=== PATIENT | female | born 1950 | race Caucasian/White ===

== ENCOUNTER 2018-07-12 08:49 | Day surgery (SDC) | payer BC, MEDICARE ==
[~2018-07-12 08:49] MED LIST: Acetaminophen TAB* 325 MG PO PRN; Buffered Lidocaine 1% SYRIN* 1 ML/SYRINGE INTRADERM ONE
[2018-07-12] MEDS ORDERED: Ketorolac 0.5% OPHTH (NF) 0.5 % 5 ML BTL ONE (09:30)
[2018-07-12] MEDS ORDERED: Neomycin/Polymy/Dex OPTH.SUSP* MAXITROL 0.1% 5 ML ONE (09:30)
[2018-07-12] MEDS ORDERED: Lidocaine 2% EPI 1:200000 MPF*10-20 ML VIAL ONE (09:30)
[2018-07-12] MEDS ORDERED: Proparacaine 0.5% OPHTH.SOL* 15 ML BTL ONE (09:30)
[2018-07-12] MEDS ORDERED: Povidone Iodine 5% OPTH* 30 ML BTL ONE (09:30)
[2018-07-12] MEDS ORDERED: acetaZOLAMIDE TAB* 250 MG ONE (09:30)
[2018-07-12] MEDS ORDERED: Cyclopentolate 1% OPTH.SOL* 2 ML BTL ONE (09:30)
[2018-07-12] MEDS ORDERED: Lidocaine 1%* 5 ML VIAL ONE (09:30)
[2018-07-12] MEDS ORDERED: Phenylephrine OPHTH SOL 2.5%* 2 ML ONE (09:30)
[2018-07-12] MEDS ORDERED: Midazolam* 1 MG/ML 2 ML VIAL (2 MG) ONE (11:05)
[2018-07-12] MEDS ORDERED: fentaNYL* 50 MCG/ML 2 ML VIAL (100 MCG VIAL) ONE (11:08)
[2018-07-12 12:21] VITALS: BP 157/87
--- NOTE | 2018-07-12 12:39 | OP ---
DATE OF OPERATION: 07/12/18 [facility] DATE OF : 50 SURGEON: Peter Varghese M.D. PREOPERATIVE DIAGNOSIS: Cataract, right eye. POSTOPERATIVE DIAGNOSIS: Cataract, right eye. OPERATIVE PROCEDURE: Extracapsular cataract extraction with intraocular lens implant, right eye. DESCRIPTION OF PROCEDURE: The patient was brought to the operating room after being given 1/2% Alcaine with epinephrine drops in the preoperative area. The eye was prepped and draped in the usual sterile fashion. Sterile drape and eyelid speculum were placed. Again, topical 1/2% Alcaine with epinephrine was given. A paracentesis incision was made at the 12 o'clock position with the No.75 blade. Clear cornea incision 2.2 x 2.2-mm was created at the 9 o'clock position starting at the anterior limbus using the 2.2-mm keratome. The anterior chamber was irrigated with 0.4 mL of 1% non-preservative intracameral lidocaine and filled with DisCoVisc. A capsulorrhexis was completed using the cystotome and the Utrata forceps. Hydrodissection was performed with balanced salt solution. The lens nucleus was removed with the Phacoemulsification handpiece without incident. Cortex was removed with the irrigation-aspiration handpiece. The capsular bag was re-inflated using DisCoVisc and an SN6AT7 6.5 implant was inserted with the shooter, oriented to the 92-degree meridian. Horizontal reference guerrier were made with the patient in seated position in the preoperative area. ORA was used to confirm all measurements. The irrigation- aspiration handpiece was used to remove all residual DisCoVisc. The eye was refilled with balanced salt solution and the wound checked and found to be watertight. Topical Maxitrol drops were given. [id number]/[facility] #: [id number] LILLIANA
== END 2018-07-12 12:29 | disposition home or self-care (01) ==
LOC: OREAST 08:49
PROVIDERS: ATTEND Specialist
DX: H25.811 Combined forms of age-related cataract, right eye (principal); H44.23 Degenerative myopia, bilateral; Z87.891 Personal history of nicotine dependence
CPT/HCPCS: A9270-GY; J2250; J3010; V2787

== ENCOUNTER 2018-07-19 07:13 | Day surgery (SDC) | payer BC ==
[~2018-07-19 07:13] MED LIST changes: -Acetaminophen TAB* 325 MG PO PRN
[2018-07-19] MEDS ORDERED: fentaNYL* 50 MCG/ML 2 ML VIAL (100 MCG VIAL) ONE (08:35)
[2018-07-19] MEDS ORDERED: Midazolam* 1 MG/ML 2 ML VIAL (2 MG) ONE (08:35)
[2018-07-19 09:54] VITALS: BP 164/77
[2018-07-19] MEDS ORDERED: Povidone Iodine 5% OPTH* 30 ML BTL ONE ×2 (10:05→11:54)
[2018-07-19] MEDS ORDERED: Lidocaine 1%* 5 ML VIAL ONE ×2 (10:05→11:54)
[2018-07-19] MEDS ORDERED: Proparacaine 0.5% OPHTH.SOL* 15 ML BTL ONE ×2 (10:05→11:54)
[2018-07-19] MEDS ORDERED: Phenylephrine OPHTH SOL 2.5%* 2 ML ONE ×2 (10:05→11:54)
[2018-07-19] MEDS ORDERED: Lidocaine 2% EPI 1:200000 MPF*10-20 ML VIAL ONE ×2 (10:05→11:54)
[2018-07-19] MEDS ORDERED: acetaZOLAMIDE TAB* 250 MG ONE ×2 (10:05→11:54)
[2018-07-19] MEDS ORDERED: Neomycin/Polymy/Dex OPTH.SUSP* MAXITROL 0.1% 5 ML ONE ×2 (10:05→11:54)
[2018-07-19] MEDS ORDERED: Ketorolac 0.5% OPHTH (NF) 0.5 % 5 ML BTL ONE ×2 (10:05→11:54)
[2018-07-19] MEDS ORDERED: Cyclopentolate 1% OPTH.SOL* 2 ML BTL ONE ×2 (10:05→11:54)
--- NOTE | 2018-07-19 11:37 | OP ---
OPERATIVE NOTE: DATE OF OPERATION: 07/19/18 DATE OF : 50 SURGEON: Peter Varghese M.D. PREOPERATIVE DIAGNOSIS: Cataract, left eye. POSTOPERATIVE DIAGNOSIS: Cataract, left eye. OPERATIVE PROCEDURE: Extracapsular cataract extraction with intraocular lens implant, left eye. PROCEDURE: The patient was brought to the operating room after being given 1/2% Alcaine with epineph rine drops in the preoperative area. The eye was prepped and draped in the usual sterile fashion. S terile drape and eyelid speculum were placed. Again, topical 1/2% Alcaine with epinephrine was given . A paracentesis incision was made at the 3 o'clock position with the No. 75 blade. Clear cornea in cision 2.2 x 2.2-mm was created at the 6 o'clock position starting at the anterior limbus using the 2 .2-mm keratome. The anterior chamber was irrigated with 0.4 mL of 1% non-preservative intracameral l idocaine and filled with DisCoVisc. A capsulorrhexis was completed using the cystotome and the Utrat a forceps. Hydrodissection was performed with balanced salt solution. The lens nucleus was removed w ith the Phacoemulsification handpiece without incident. Cortex was removed with the irrigation-aspir ation handpiece. The capsular bag was re-inflated using DisCoVisc and an SN6AT7 6 diopter inserted w ith the shooter oriented to the 74-degree meridian. Horizontal reference guerrier were made with the pa tient in the seated position in the preoperative area and all measurements confirmed with ORA. The ir rigation-aspiration handpiece was used to remove all residual DisCoVisc. The eye was refilled with b alanced salt solution and the wound checked and found to be watertight. Topical Maxitrol drops were given. [id number]/[facility] #: [id number]
[2018-07-20] MEDS ORDERED: Acetaminophen TAB* 325 MG PO PRN (05:00)
== END 2018-07-19 09:55 | disposition home or self-care (01) ==
LOC: OREAST 07:13
PROVIDERS: ATTEND Specialist
DX: H25.812 Combined forms of age-related cataract, left eye (principal); H44.23 Degenerative myopia, bilateral; Z87.891 Personal history of nicotine dependence
CPT/HCPCS: A9270-GY; J2250; J3010; V2787

== ENCOUNTER 2022-02-12 07:15 | Inpatient (IN) ==
[~2022-02-12 07:15] MED LIST changes: +Buffered Lidocaine 1% SYRIN 1 ml INTRADERM ONE; -Buffered Lidocaine 1% SYRIN* 1 ML/SYRINGE INTRADERM ONE; +Lactated Ringers 1000 ml BAG 1,000 ML IV SCH
[2022-02-12] MEDS ORDERED: Ropivacaine 5 MG/ML 20 ML VIAL 0.5% (100 MG) ONE (07:55)
[2022-02-12] MEDS ORDERED: Lidocaine 2% PF 5 ML VIAL ONE ×2 (08:00→08:04)
[2022-02-12] MEDS ORDERED: Propofol 10 MG/ML 20 ML BTL ONE ×3 (08:00→12:18)
[2022-02-12] MEDS ORDERED: Ketamine HCL 50 mg/ml 10 ml VIAL (500 MG) ONE (08:09)
[2022-02-12] MEDS ORDERED: ceFAZolin 2 GM PREMIX 2 GM/50 ML BAG ONE (08:16)
[2022-02-12] MEDS ORDERED: Buffered Lidocaine 1% SYRIN 1 ml INTRADERM ONE (08:17)
[2022-02-12] MEDS ORDERED: Midazolam 2 mg/2 ml VIAL 1 mg/ml 2 ml VIAL (2 mg) ONE (09:34)
[2022-02-12] MEDS ORDERED: fentaNYL 100 mcg/2 ml 50 MCG/ML VIAL ONE (09:34)
[2022-02-12] MEDS ORDERED: ROPIVACAINE 5 MG/ML 30 ML BTL (0.5%) ONE (09:35)
[2022-02-12] MEDS ORDERED: Naloxone 0.4 mg VIAL 0.4 mg/ml 1 ml VIAL IV PRN (10:20)
[2022-02-12] MEDS ORDERED: Prochlorperazine 5 mg/ml 2 ml VIAL (10 mg) IV PRN (10:20)
[2022-02-12] MEDS ORDERED: Ondansetron 4 mg VIAL 2 MG/ML 2 ml VIAL ONE (10:53)
[2022-02-12] MEDS ORDERED: Magnesium Hydroxide LIQ 30 ML UDC PO PRN (12:40)
[2022-02-12] MEDS ORDERED: Lactulose 30 ml UDC PO PRN (12:40)
[2022-02-12] MEDS ORDERED: Ondansetron 4 mg VIAL 2 MG/ML 2 ml VIAL IV PRN (12:40)
[2022-02-12] MEDS ORDERED: Ondansetron ODT 4 mg TAB 4 MG TAB PO PRN (12:40)
[2022-02-12] MEDS ORDERED: HYDROmorphone 1 MG/1 ML SYRINGE ONE (12:43)
[2022-02-12] MEDS: HYDROmorphone 1 MG/1 ML SYRINGE IV PRN ×5 (12:49→13:39)
[2022-02-12] MEDS: Morphine 2 MG/ML SYRINGE IV PRN ×2 (16:17→21:22)
[2022-02-12] MEDS: Lactated Ringers 1000 ml BAG 1,000 ML IV SCH (16:22)
[2022-02-12] MEDS: ceFAZolin 1 GM ADVAN 1 GM in NS 0.9% 50 ML 50 ML IVPB SCH ×2 (16:24→23:46)
[2022-02-12] MEDS: Magnesium Hydroxide LIQ 30 ML UDC PO SCH (21:26)
[2022-02-13] MEDS: Lactated Ringers 1000 ml BAG 1,000 ML IV SCH (03:13)
[2022-02-13 06:19] LABS: Hematocrit 35 % (35-47); Hemoglobin 11.7 g/dL (12.0-16.0); Platelet Count 243 10^3/uL (150-450)
[2022-02-13 06:41] LABS: Calcium 8.9 mg/dL (8.6-10.3); Potassium 4.7 mmol/L (3.5-5.0); eGFR CKD-EPI 81.2 (>60)
[2022-02-13] MEDS: Magnesium Hydroxide LIQ 30 ML UDC PO SCH (07:50)
[2022-02-13] MEDS: ceFAZolin 1 GM ADVAN 1 GM in NS 0.9% 50 ML 50 ML IVPB SCH (07:50)
[2022-02-13] MEDS ORDERED: Vitamin THERAPEUTIC TAB PO SCH (09:00)
[2022-02-13 12:06] VITALS: BP 153/80
== END 2022-02-13 14:05 | disposition home or self-care (01) | DRG 470 ==
LOC: AA 07:15 → SSU 15:45
PROVIDERS: ADMIT Orthopaedic Surgery Adult Reconstructive Orthopaedic Surgery; ATTEND Orthopaedic Surgery Adult Reconstructive Orthopaedic Surgery

== ENCOUNTER 2022-06-08 06:20 | Inpatient (IN) ==
[2022-06-08] MEDS ORDERED: Lidocaine 2% PF 5 ML VIAL ONE (06:43)
[2022-06-08] MEDS ORDERED: ceFAZolin 2 GM PREMIX 2 GM/50 ML BAG ONE (07:13)
[2022-06-08] MEDS ORDERED: fentaNYL 100 mcg/2 ml 50 MCG/ML VIAL ONE ×3 (08:40→10:08)
[2022-06-08] MEDS ORDERED: ROPIVACAINE 5 MG/ML 30 ML BTL (0.5%) ONE ×3 (08:41→09:57)
[2022-06-08] MEDS ORDERED: Midazolam 2 mg/2 ml VIAL 1 mg/ml 2 ml VIAL (2 mg) ONE ×2 (08:41→10:11)
[2022-06-08] MEDS ORDERED: Ondansetron 4 mg VIAL 2 MG/ML 2 ml VIAL IV PRN ×2 (09:14→10:21)
[2022-06-08] MEDS ORDERED: fentaNYL 100 mcg/2 ml 50 MCG/ML VIAL IV PRN (09:14)
[2022-06-08] MEDS ORDERED: Naloxone 0.4 mg VIAL 0.4 mg/ml 1 ml VIAL IV PRN (09:14)
[2022-06-08] MEDS ORDERED: Ketamine HCL 50 mg/ml 10 ml VIAL (500 MG) ONE (09:36)
[2022-06-08] MEDS ORDERED: Glycopyrrolate IV 0.2 MG/ML 1 ML VIAL ONE ×2 (09:45→10:16)
[2022-06-08] MEDS ORDERED: Lactulose 30 ml UDC PO PRN (10:21)
[2022-06-08] MEDS ORDERED: Ondansetron ODT 4 mg TAB 4 MG TAB PO PRN (10:21)
[2022-06-08] MEDS ORDERED: Magnesium Hydroxide LIQ 30 ML UDC PO PRN (10:21)
[2022-06-08] MEDS ORDERED: Morphine 2 MG/ML SYRINGE IV PRN (10:21)
[2022-06-08] MEDS ORDERED: Propofol 10 MG/ML 20 ML BTL ONE (11:05)
[2022-06-08] MEDS ORDERED: Dexamethasone IV 4 MG/ML VIAL 1 ml VIAL ONE (11:06)
[2022-06-08] MEDS: Lactated Ringers 1000 ml BAG 1,000 ML IV SCH (15:08)
[2022-06-08] MEDS: ceFAZolin 1 GM ADVAN 1 GM in NS 0.9% 50 ML 50 ML IVPB SCH (17:51)
[2022-06-08] MEDS ORDERED: Cholecalciferol (VIT D3) 1,000 unit TAB PO SCH (21:00)
[2022-06-08] MEDS: Magnesium Hydroxide LIQ 30 ML UDC PO SCH (21:10)
[2022-06-09] MEDS: Lactated Ringers 1000 ml BAG 1,000 ML IV SCH (01:25)
[2022-06-09] MEDS: ceFAZolin 1 GM ADVAN 1 GM in NS 0.9% 50 ML 50 ML IVPB SCH ×2 (01:25→09:42)
[2022-06-09 06:14] LABS: Hematocrit 38 % (35-47); Hemoglobin 12.8 g/dL (12.0-16.0); Mean Platelet Volume 6.8 fL (7.4-10.4); Platelet Count 281 10^3/uL (150-450)
[2022-06-09 06:27] LABS: Calcium 9.6 mg/dL (8.6-10.3); Creatinine, Serum 0.78 mg/dL (0.51-0.95); Potassium 4.3 mmol/L (3.5-5.0); eGFR CKD-EPI 80.6 (>60)
[2022-06-09 07:26] VITALS: BP 125/67
[2022-06-09] MEDS: Magnesium Hydroxide LIQ 30 ML UDC PO SCH (07:55)
[2022-06-09] MEDS ORDERED: Vitamin THERAPEUTIC TAB PO SCH (09:00)
== END 2022-06-09 10:30 | disposition home or self-care (01) | DRG 468 ==
LOC: INTOOBSV 06:20 → AA 06:20 → SSU 10:21
PROVIDERS: ADMIT Orthopaedic Surgery Adult Reconstructive Orthopaedic Surgery; ATTEND Orthopaedic Surgery Adult Reconstructive Orthopaedic Surgery